=== PATIENT | female | born 1980 | race Hispanic/Latino ===

== ENCOUNTER 2020-06-19 09:50 | Emergency (ER) | payer SELFPAY ==
[2020-06-19 11:12] LABS: Urine Blood 2+ (NEG); Urine Glucose NEGATIVE (NEG); Urine Protein NEGATIVE (NEG); Urine Specific Gravity 1.015 (1.005-1.030)
[2020-06-19 11:13] LABS: Absolute Lymphocytes (CBC) 1.2 K/uL (0.7-4.9); Hematocrit 39.8 % (36.0-45.0); Lymphocytes % 13.2 % (15.3-44.8); MPV 8.2 fL (7.6-11.3); RBC Red Blood Cell Count 4.61 M/uL (3.86-4.86)
[2020-06-19 11:57] LABS: BUN Blood Urea Nitrogen 7 mg/dL (7-18); Bicarbonate 25 mmol/L (21-32); Glucose Level 115 mg/dL (74-106); HCG, Quantitative 4459 mIU/mL (1-3); Potassium 3.3 mmol/L (3.5-5.1); Sodium Level 142 mmol/L (136-145)
--- NOTE | 2020-06-19 12:01 | RAD REPORT ---
EXAM DESCRIPTION: US - Transvaginal OB - 06/19/2020 11:50 am CLINICAL HISTORY: Vaginal bleeding;Abd pain COMPARISON: No comparisons FINDINGS: A normal shaped gestational sac is seen in the fundal portion of the endometrial cavity. A verage gestational sac measurements correspond to a 6 week 2 day age. No pole identified. There may be a very small yolk sac. No hemorrhage, mass or other intrauterine abnormality seen. A small cyst identified in the left ovary containing a small amount of echogenic debris. Both ovaries are normal in size. No evidence for ectopic . No blood or fluid in the cul de sac. IMPRESSION: A 6 week 2 day sized gestational sac is seen in the fundus of the uterus. No pole identified. No adnexal mass or suspicion for ectopic . Follow-up ultrasound could be performed if serial beta HCG values indicate ongoing .
[2020-06-19 12:04] LABS: Blood Morphology Comment NOT SEEN (NOT SEEN); Platelet Estimate ADEQ
--- NOTE | 2020-06-19 12:05 | EDPHYS ---
Physician Documentation [facility] Name: Mariama Harris Age: 40 yrs Sex: Female : 1980 Arrival Date: 06/19/2020 Time: 09:52 Bed 13 Private MD: ED Physician Nato Manley HPI: 06/19 10:42 This 40 yrs old Female presents to ER via Ambulatory with complaints of jr8 Vaginal Bleeding, + Preg <12wks, Pelvic Pain. 10:42 The patient presents to the emergency department with vaginal bleeding, that is light. jr8 The estimated gestational age is 6 weeks. course: care: none, Leakage of Fluid: none appreciated, Ultrasound: the patient has not had an ultrasound. Previous pregnancies: the patient has never been . Associated signs and symptoms: Pertinent positives: abdominal pain. The patient has not experienced similar symptoms in the past. The patient has not recently seen a physician. 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 - Social history:: Smoking status: Patient/guardian denies using tobacco, Stopped _ months ago 7. ROS: 10:42 Eyes: Negative for injury, pain, redness, and discharge, ENT: Negative for injury, jr8 pain, and discharge, Neck: Negative for injury, pain, and swelling, Cardiovascular: Negative for chest pain, palpitations, and edema, Respiratory: Negative for shortness of breath, cough, wheezing, and pleuritic chest pain, Back: Negative for injury and pain, MS/Extremity: Negative for injury and deformity, Skin: Negative for injury, rash, and discoloration, Neuro: Negative for headache, weakness, numbness, tingling, and seizure. 10:42 Abdomen/GI: Positive for abdominal cramps, Negative for nausea, vomiting, and diarrhea. 10:42 : Positive for vaginal bleeding, Negative for urinary symptoms, pelvic pain, flank pain, vaginal discharge, vaginal itching. Exam: 10:42 Constitutional: This is a well developed, well nourished patient who is awake, alert, jr8 and in no acute distress. Cardiovascular: Regular rate and rhythm with a normal S1 and S2. No gallops, murmurs, or rubs. Normal PMI, no JVD. No pulse deficits. Respiratory: Lungs have equal breath sounds bilaterally, clear to auscultation and percussion. No rales, rhonchi or wheezes noted. No increased work of breathing, no retractions or nasal flaring. Abdomen/GI: Soft, non-tender, with normal bowel sounds. No distension or tympany. No guarding or rebound. No evidence of tenderness throughout. Back: No spinal tenderness. No costovertebral tenderness. Full range of motion. Skin: Warm, dry with normal turgor. Normal color with no rashes, no lesions, and no evidence of cellulitis. MS/ Extremity: Pulses equal, no cyanosis. Neurovascular intact. Full, normal range of motion. Neuro: Awake and alert, GCS 15, oriented to person, place, time, and situation. Cranial nerves II-XII grossly intact. Motor strength 5/5 in all extremities. Sensory grossly intact. Cerebellar exam normal. Normal gait. Vital Signs: 10:35 BP 110 / 64; Pulse 76; Resp 16 S; Temp 97.7(TE); Pulse Ox 100% on R/A; Weight 59.87 kg ca1 (R); Height 5 ft. 2 in. (157.48 cm) (R); Pain 4/10; 11:50 BP 106 / 72; Pulse 81; Resp 16 S; Pulse Ox 100% on R/A; ca1 10:35 Body Mass Index 24.14 (59.87 kg, 157.48 cm) ca1 MDM: 10:29 Patient medically screened. jr8 12:04 Data reviewed: vital signs, nurses notes, lab test result(s), radiologic studies, jr8 ultrasound. Data interpreted: Pulse oximetry: on room air is 100 %. Interpretation: normal. Counseling: I had a detailed discussion with the patient and/or guardian regarding: the historical points, exam findings, and any diagnostic results supporting the discharge/admit diagnosis, lab results, radiology results, the need for outpatient follow up, an OB/Gyne specialist, to return to the emergency department if symptoms worsen or persist or if there are any questions or concerns that arise at home. 06/19 10:41 Order name: Quantitative Hcg; Complete Time: 11:59 06/19 10:41 Order name: Abo/rh Typing; Complete Time: 11:41 06/19 10:41 Order name: Basic Metabolic Panel; Complete Time: 11:59 06/19 10:41 Order name: CBC with Diff; Complete Time: 12:05 06/19 10:58 Order name: Urine Dipstick--Ancillary (enter results); Complete Time: 11:20 bd 06/19 10:58 Order name: Urine --Ancillary (enter results); Complete Time: 11:20 bd 06/19 10:41 Order name: Urine Test (obtain specimen); Complete Time: 10:57 06/19 10:41 Order name: IV Saline Lock; Complete Time: 10:57 06/19 10:41 Order name: Labs collected and sent; Complete Time: 10:06/19 10:41 Order name: NPO; Complete Time: 10:06/19 10:41 Order name: Urine Dipstick-Ancillary (obtain specimen); Complete Time: 10:06/19 11:08 Order name: US Transvaginal Ob; Complete Time: 12:03 06/19 11:22 Order name: Manual Differential; Complete Time: 12:05 EDMS Administered Medications: 12:20 Drug: Potassium Chloride 40 mEq Route: PO; ca1 12:21 Follow up: Response: Medication administered at discharge. ca1 Disposition: 12:37 Co-signature as Attending Physician, Nato Manley MD. rn Disposition: 06/19/20 12:04 Discharged to Home. Impression: Threatened . - Condition is Stable. - Discharge Instructions: Threatened Miscarriage, Vaginal Bleeding During , First Trimester, Pelvic Rest. - Medication Reconciliation Form, Thank You Letter, Antibiotic Education, Prescription Opioid Use form. - Follow up: Private Physician; When: 1 week; Reason: Recheck today's complaints, Continuance of care, Re-evaluation by your physician. - Problem is new. - Symptoms have improved. Signatures: Dispatcher [employer] EDMS Nato Manley MD MD rn Roszak, Josh, PA PA jrElvia Molina RN RN ca1 Corrections: (The following items were deleted from the chart) 10:54 10:42 Constitutional: Negative for fever, chills, and weight loss, Cardiovascular: jr8 Negative for chest pain, palpitations, and edema, Respiratory: Negative for shortness of breath, cough, wheezing, and pleuritic chest pain, Abdomen/GI: Negative for abdominal pain, nausea, vomiting, diarrhea, and constipation, Back: Negative for injury and pain, MS/Extremity: Negative for injury and deformity, Skin: Negative for injury, rash, and discoloration, Neuro: Negative for headache, weakness, numbness, tingling, and seizure, jr8 12:21 12:04 06/19/2020 12:04 Discharged to Home. Impression: Threatened . Condition ca1 is Stable. Forms are Medication Reconciliation Form, Thank You Letter, Antibiotic Education, Prescription Opioid Use. Follow up: Private Physician; When: 1 week; Reason: Recheck today's complaints, Continuance of care, Re-evaluation by your physician. Problem is new. Symptoms have improved. jr8
--- NOTE | 2020-06-19 12:05 | ER ---
Nurse's Notes [facility] Name: Mariama Harris Age: 40 yrs Sex: Female : 1980 Arrival Date: 06/19/2020 Time: 09:52 Bed 13 Private MD: Diagnosis: Threatened Presentation: 06/19 10:35 Chief complaint: Patient states: 6 weeks , crampy since last night. Spotting ca1 since Wednesday, but has increased to vaginal bleeding, moderate in amount. Coronavirus screen: Client denies travel out of the [place] in the last 14 days. At this time, the client does not indicate any symptoms associated with coronavirus-19. Ebola Screen: Patient negative for fever greater than or equal to 101.5 degrees Fahrenheit, and additional compatible Ebola Virus Disease symptoms Patient denies exposure to infectious person. Patient denies travel to an Ebola-affected area in the 21 days before illness onset. No symptoms or risks identified at this time. Initial Sepsis Screen: Does the patient meet any 2 criteria? No. Patient's initial sepsis screen is negative. Does the patient have a suspected source of infection? No. Patient's initial sepsis screen is negative. Risk Assessment: Do you want to hurt yourself or someone else? Patient reports no desire to harm self or others. Onset of symptoms was June 19, 2020. 10:35 Method Of Arrival: Ambulatory ca1 10:35 Acuity: JEFFRY 3 ca1 Triage Assessment: 10:39 General: Appears in no apparent distress. comfortable, Behavior is calm, cooperative, ca1 appropriate for age. Pain: Complains of pain in suprapubic area, right lower quadrant and left lower quadrant Pain does not radiate. Pain currently is 4 out of 10 on a pain scale. Quality of pain is described as crampy, Pain began 1 day ago. Is intermittent. EENT: No deficits noted. No signs and/or symptoms were reported regarding the EENT system. Neuro: Level of Consciousness is awake, alert, obeys commands, Oriented to person, place, time, situation, Appropriate for age. Cardiovascular: Heart tones S1 S2 present Capillary refill < 3 seconds Patient's skin is warm and dry. Respiratory: Airway is patent Respiratory effort is even, unlabored, Respiratory pattern is regular, symmetrical, Breath sounds are clear bilaterally. GI: Abdomen is flat, non-distended, Bowel sounds present X 4 quads. Abd is soft and non tender X 4 quads. : Reports cramping, lower quadrant(s) vaginal bleeding that is bright red. Derm: Skin is intact, is healthy with good turgor, Skin is pink, warm \T\ dry. 10:39 Musculoskeletal: Circulation, motion, and sensation intact. Capillary refill < 3 ca1 seconds. 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 - Social history:: Smoking status: Patient/guardian denies using tobacco, Stopped _ months ago 7. Screenin:40 Abuse screen: Denies threats or abuse. Denies injuries from another. Nutritional ca1 screening: No deficits noted. Tuberculosis screening: No symptoms or risk factors identified. Fall Risk IV access (20 points). Assessment: 10:40 Reassessment: See triage notes. ca1 11:50 Reassessment: Patient appears in no apparent distress at this time. Patient and/or ca1 family updated on plan of care and expected duration. Pain level reassessed. Patient is alert, oriented x 3, equal unlabored respirations, skin warm/dry/pink. Vital Signs: 10:35 BP 110 / 64; Pulse 76; Resp 16 S; Temp 97.7(TE); Pulse Ox 100% on R/A; Weight 59.87 kg ca1 (R); Height 5 ft. 2 in. (157.48 cm) (R); Pain 4/10; 11:50 BP 106 / 72; Pulse 81; Resp 16 S; Pulse Ox 100% on R/A; ca1 10:35 Body Mass Index 24.14 (59.87 kg, 157.48 cm) ca1 ED Course: 09:52 Patient arrived in ED. as 09:58 Chucky Sparks PA is PHCP. jr8 09:58 Nato Manley MD is Attending Physician. jr8 10:25 Elvia Stock, RN is Primary Nurse. ca1 10:38 Triage completed. ca1 10:39 Arm band placed on right wrist. ca1 10:40 Patient has correct armband on for positive identification. Placed in gown. Bed in low ca1 position. Call light in reach. Side rails up X 1. Pulse ox on. NIBP on. Warm blanket given. 10:40 No provider procedures requiring assistance completed. Initial lab(s) drawn, by nc, ca1 sent to lab. Inserted saline lock: 20 gauge in right antecubital area, using aseptic technique. Blood collected. 11:49 US Transvaginal Ob In Process Unspecified. EDMS 12:21 IV discontinued, intact, bleeding controlled, No redness/swelling at site. Pressure ca1 dressing applied. Administered Medications: 12:20 Drug: Potassium Chloride 40 mEq Route: PO; ca1 12:21 Follow up: Response: Medication administered at discharge. ca1 Outcome: 12:04 Discharge ordered by . crystal 12:21 Discharged to home ambulatory. ca1 12:21 Condition: stable 12:21 Discharge instructions given to patient, Instructed on discharge instructions, follow up and referral plans. Demonstrated understanding of instructions, follow-up care. 12:21 Patient left the ED. ca1 Signatures: Dispatcher [employer] EDMS Hetal Harvey Josh, PA PA jr8 Elvia Stock, RN RN ca1 Corrections: (The following items were deleted from the chart) 10:40 10:39 Derm: Skin is intact, is healthy with good turgor, Skin is pink, warm \T\ dry. ca1 ca1
[2020-06-19] MEDS ORDERED: POTASSIUM CL SA 10 MEQ TAB PO ONE (12:24)
[2020-06-24 09:35] VITALS: TEMP 97.7; O2SAT 100
[2020-06-24 09:36] VITALS: BP 106/72
== END 2020-06-19 12:21 | disposition home or self-care (01) ==
LOC: ER 09:50
DX: O20.0 Threatened abortion (principal); Z3A.01 Less than 8 weeks gestation of pregnancy
CPT/HCPCS: 36415; 76817; 80048; 81003; 81025; 84702; 85025; 86900; 86901; 99284

== ENCOUNTER 2020-06-26 10:57 | Emergency (ER) | payer SELFPAY ==
[2020-06-26 12:37] LABS: Absolute Lymphocytes (CBC) 1.3 K/uL (0.7-4.9); Basophils % 0.4 % (0-1.3); Hematocrit 38.6 % (36.0-45.0); Lymphocytes % 16.5 % (15.3-44.8); MPV 8.1 fL (7.6-11.3); RBC Red Blood Cell Count 4.48 M/uL (3.86-4.86)
--- NOTE | 2020-06-26 12:57 | EDPHYS ---
Physician Documentation [facility] Name: Mariama Harris Age: 40 yrs Sex: Female : 1980 Arrival Date: 06/26/2020 Time: 10:59 Bed 20 Private MD: ED Physician Ronni Santana HPI: 06/26 11:34 This 40 yrs old Female presents to ER via Ambulatory with complaints of jr8 Vaginal Bleeding - W/ Pain. 11:34 Onset: The symptoms/episode began/occurred gradually, 1 week(s) ago. Modifying factors: jr8 The symptoms are alleviated by nothing, the symptoms are aggravated by nothing. Associated signs and symptoms: Pertinent positives: pelvic pain. Severity of symptoms: At their worst the symptoms were moderate, in the emergency department the symptoms are unchanged. The patient has not experienced similar symptoms in the past. The patient has been recently seen by a physician:. Patient seen last week for vaginal spotting. Approximately 6 weeks gestation at that time. Worked up and found to have threatened . Followed up with OB and has scheduled appointment tomorrow for another US. Came to ED today because she is now passing large clots and having pelvic pain . Historical: - Allergies: 11:07 PENICILLINS; ll1 - PSHx: 11:07 None; ll1 - Immunization history:: Flu vaccine is up to date. - Social history:: Smoking status: Patient/guardian denies using tobacco, Stopped _ months ago 7 Patient uses alcohol, only on a social basis. Patient/guardian denies using street drugs. ROS: 11:34 Eyes: Negative for injury, pain, redness, and discharge, ENT: Negative for injury, jr8 pain, and discharge, Neck: Negative for injury, pain, and swelling, Cardiovascular: Negative for chest pain, palpitations, and edema, Respiratory: Negative for shortness of breath, cough, wheezing, and pleuritic chest pain, Abdomen/GI: Negative for abdominal pain, nausea, vomiting, diarrhea, and constipation, Back: Negative for injury and pain, MS/Extremity: Negative for injury and deformity, Skin: Negative for injury, rash, and discoloration, Neuro: Negative for headache, weakness, numbness, tingling, and seizure. 11:34 : Positive for pelvic pain, vaginal bleeding. Exam: 11:34 Constitutional: This is a well developed, well nourished patient who is awake, alert, jr8 and in no acute distress. Cardiovascular: Regular rate and rhythm with a normal S1 and S2. No gallops, murmurs, or rubs. Normal PMI, no JVD. No pulse deficits. Respiratory: Lungs have equal breath sounds bilaterally, clear to auscultation and percussion. No rales, rhonchi or wheezes noted. No increased work of breathing, no retractions or nasal flaring. Abdomen/GI: Soft, non-tender, with normal bowel sounds. No distension or tympany. No guarding or rebound. No evidence of tenderness throughout. Skin: Warm, dry with normal turgor. Normal color with no rashes, no lesions, and no evidence of cellulitis. MS/ Extremity: Pulses equal, no cyanosis. Neurovascular intact. Full, normal range of motion. Neuro: Awake and alert, GCS 15, oriented to person, place, time, and situation. Cranial nerves II-XII grossly intact. Motor strength 5/5 in all extremities. Sensory grossly intact. Cerebellar exam normal. Normal gait. 12:54 : Pelvic Exam: External exam: is normal, Speculum exam: mild bleeding, no cervicitis, jr8 os that is open, tissue in cervix is seen. Vital Signs: 11:07 BP 116 / 60; Pulse 83; Resp 16; Temp 98.6; Pulse Ox 100% ; Weight 55.34 kg; Height 5 ll1 ft. 2 in. (157.48 cm); Pain 7/10; 13:33 BP 112 / 64; Pulse 81; Resp 18; Temp 97.8; Pulse Ox 99% on R/A; ph 11:07 Body Mass Index 22.31 (55.34 kg, 157.48 cm) ll1 MDM: 11:10 Patient medically screened. jr8 12:53 Data reviewed: vital signs, nurses notes, lab test result(s), and as a result, I will jr8 discharge patient. Data interpreted: Pulse oximetry: on room air is 100 %. Interpretation: normal. Counseling: I had a detailed discussion with the patient and/or guardian regarding: the historical points, exam findings, and any diagnostic results supporting the discharge/admit diagnosis, lab results, the need for outpatient follow up, an OB/Gyne specialist, to return to the emergency department if symptoms worsen or persist or if there are any questions or concerns that arise at home. 12:54 ED course: Explained to patient that there is no gross hemorrhage present. Moderate jr8 normal flow bleeding for miscarriage noted. Explained to her that this would be normal and will continue for next 24-48 hours and then should decrease. If worse to come back for further evaluation. Otherwise to keep OB appointment for tomorrow . 06/26 11:23 Order name: CBC with Diff; Complete Time: 12:43 jr8 06/26 11:23 Order name: Basic Metabolic Panel; Complete Time: 13:32 jr8 06/26 11:23 Order name: IV; Complete Time: 12:35 jr8 06/26 11:23 Order name: HCG-Quantitative; Complete Time: 13:32 jr8 06/26 11:24 Order name: Pelvic Exam Setup; Complete Time: 12:39 jr8 Administered Medications: No medications were administered Disposition: 17:00 Co-signature as Attending Physician, Ronni Santana MD I agree with the assessment and kdr plan of care. Disposition: 06/26/20 12:56 Discharged to Home. Impression: Spontaneous . - Condition is Stable. - Discharge Instructions: Miscarriage. - Medication Reconciliation Form, Thank You Letter, Antibiotic Education, Prescription Opioid Use form. - Follow up: Private Physician; When: Tomorrow; Reason: Recheck today's complaints, Continuance of care, Re-evaluation by your physician. - Problem is new. - Symptoms have improved. Signatures: Dispatcher [employer] EDMS Ronni Santana MD MD [facility] Chucky Sparks PA PA jr8 Manasa Ruffin RN RN ph Bryanna Hoover RN RN ll1 Corrections: (The following items were deleted from the chart) 13:37 12:56 06/26/2020 12:56 Discharged to Home. Impression: Spontaneous . Condition ph is Stable. Forms are Medication Reconciliation Form, Thank You Letter, Antibiotic Education, Prescription Opioid Use. Follow up: Private Physician; When: Tomorrow; Reason: Recheck today's complaints, Continuance of care, Re-evaluation by your physician. Problem is new. Symptoms have improved. jr8
--- NOTE | 2020-06-26 12:57 | ER ---
Nurse's Notes [facility] Name: Mariama Harris Age: 40 yrs Sex: Female : 1980 Arrival Date: 06/26/2020 Time: 10:59 Bed 20 Private MD: Diagnosis: Spontaneous Presentation: 06/26 11:07 Coronavirus screen: Client denies travel out of the [place] in the last 14 days. At this ll1 time, the client does not indicate any symptoms associated with coronavirus-19. Ebola Screen: Patient denies travel to an Ebola-affected area in the 21 days before illness onset. Initial Sepsis Screen: Does the patient meet any 2 criteria? No. Patient's initial sepsis screen is negative. Risk Assessment: Do you want to hurt yourself or someone else? Patient reports no desire to harm self or others. Onset of symptoms was June 16, 2020. 11:07 Method Of Arrival: Ambulatory ll1 11:07 Acuity: JEFFRY 3 ll1 11:10 Chief complaint: Patient states: G1, P0. Here last week for threatened . ll1 Vaginal bleeding and pain has increased since yesterday. Reports clots today. Saw her OB Wednesday, ultrasound scheduled for . Came in since bleeding got worse. Initial Sepsis Screen:. Triage Assessment: 11:11 General: Appears uncomfortable, Behavior is calm, cooperative, appropriate for age. ll1 Pain: Complains of pain in pelvis Pain currently is 7 out of 10 on a pain scale. Quality of pain is described as crampy, Pain began 10 days Is intermittent. Neuro: No deficits noted. Cardiovascular: No deficits noted. Respiratory: No deficits noted. GI: Abdomen is flat, Reports cramping. : Reports cramping, pain pelvic cramping vaginal bleeding that is with clots, moderate flow. Historical: - Allergies: 11:07 PENICILLINS; ll1 - PSHx: 11:07 None; ll1 - Immunization history:: Flu vaccine is up to date. - Social history:: Smoking status: Patient/guardian denies using tobacco, Stopped _ months ago 7 Patient uses alcohol, only on a social basis. Patient/guardian denies using street drugs. Screenin:33 Abuse screen: Denies threats or abuse. Denies injuries from another. Nutritional ph screening: No deficits noted. Tuberculosis screening: No symptoms or risk factors identified. Fall Risk None identified. Assessment: 11:45 General: Appears in no apparent distress. comfortable, well groomed, Behavior is calm, ph cooperative, appropriate for age, Denies fever, feeling ill. Pain: Complains of pain in suprapubic area. Neuro: Level of Consciousness is awake, alert, obeys commands, Oriented to person, place, time, situation. Cardiovascular: Capillary refill < 3 seconds in bilateral fingers Patient's skin is warm and dry. Respiratory: Airway is patent Respiratory effort is even, unlabored. : Reports cramping, vaginal bleeding that is with clots, moderate flow. Derm: Skin is intact, Skin is pink, warm \T\ dry. Musculoskeletal: Circulation, motion, and sensation intact. Range of motion: intact in all extremities. 13:33 Reassessment: Patient appears in no apparent distress at this time. Patient and/or ph family updated on plan of care and expected duration. Pain level reassessed. Patient is alert, oriented x 3, equal unlabored respirations, skin warm/dry/pink. Vital Signs: 11:07 BP 116 / 60; Pulse 83; Resp 16; Temp 98.6; Pulse Ox 100% ; Weight 55.34 kg; Height 5 ll1 ft. 2 in. (157.48 cm); Pain 7/10; 13:33 BP 112 / 64; Pulse 81; Resp 18; Temp 97.8; Pulse Ox 99% on R/A; ph 11:07 Body Mass Index 22.31 (55.34 kg, 157.48 cm) ll1 ED Course: 10:59 Patient arrived in ED. ds1 11:06 Chucky Sparks PA is PHCP. jr8 11:06 Ronni Santana MD is Attending Physician. jr8 11:08 Manasa Ruffin, SHERIE is Primary Nurse. ph 11:08 Triage completed. ll1 11:08 Arm band placed on Patient placed in an exam room, on a stretcher. ll1 13:33 Patient has correct armband on for positive identification. Placed in gown. Bed in low ph position. Call light in reach. Side rails up X 1. 13:33 No provider procedures requiring assistance completed. IV discontinued, intact, ph bleeding controlled, No redness/swelling at site. Pressure dressing applied. Administered Medications: No medications were administered Outcome: 12:56 Discharge ordered by MD. rojas 13:33 Discharged to home ambulatory. ph 13:33 Condition: good 13:33 Discharge instructions given to patient, Instructed on discharge instructions, follow up and referral plans. Demonstrated understanding of instructions, follow-up care. 13:37 Patient left the ED. ph Signatures: Mora Nava ds1 Chucky Sparks PA PA jr8 Manasa Ruffin RN RN ph Bryanna Hoover RN RN ll1
[2020-06-26 13:29] LABS: BUN Blood Urea Nitrogen 6 mg/dL (7-18); Bicarbonate 26 mmol/L (21-32); Glucose Level 103 mg/dL (74-106); HCG, Quantitative 1165 mIU/mL (1-3); Potassium 3.8 mmol/L (3.5-5.1); Sodium Level 142 mmol/L (136-145)
== END 2020-06-26 13:37 | disposition home or self-care (01) ==
LOC: ER 10:57
DX: O03.9 Complete or unspecified spontaneous abortion without complication (principal); Z88.0 Allergy status to penicillin
CPT/HCPCS: 36415; 80048; 84702; 85025; 99281

== ENCOUNTER 2021-05-16 21:36 | Inpatient (IN) | payer SELFPAY ==
[2021-05-16 23:01] LABS: Absolute Lymphocytes (CBC) 1.1 K/uL (0.7-4.9); Basophils % 0.2 % (0-1.3); Hematocrit 34.5 % (36.0-45.0); Lymphocytes % 5.9 % (15.3-44.8); MPV 8.3 fL (7.6-11.3); RBC Red Blood Cell Count 4.21 M/uL (3.86-4.86)
[2021-05-16 23:19] LABS: ALT/SGPT 19 U/L (12-78); AST/SGOT 10 U/L (15-37); Albumin 3.5 g/dL (3.4-5.0); Alkaline Phosphatase 46 U/L (45-117); BUN Blood Urea Nitrogen 9 mg/dL (7-18); Bicarbonate 25 mmol/L (21-32); Bilirubin Direct 0.2 mg/dL (0-0.2); Glucose Level 117 mg/dL (74-106); Lipase 96 U/L (73-393); Potassium 3.3 mmol/L (3.5-5.1); Protein, Total 7.6 g/dL (6.4-8.2); Sodium Level 138 mmol/L (136-145)
[2021-05-17] MEDS ORDERED: ONDANSETRON 4 MG/2 ML VIAL ONE ×2 (01:36→12:46)
[2021-05-17] MEDS ORDERED: MORPHINE 4 MG/ML SYR ONE (01:36)
[2021-05-17] MEDS ORDERED: NA CHLORIDE 0.9% 1,000 ML ONE (01:36)
[2021-05-17 01:56] LABS: Urine Blood Trace-intact (Negative); Urine Glucose Negative (Negative); Urine Protein Trace (Negative)
--- NOTE | 2021-05-17 03:52 | EDPHYS ---
Physician Documentation [facility] Name: Mariama Harris Age: 41 yrs Sex: Female : 1980 Arrival Date: 05/16/2021 Time: 21:38 Bed 5 Private MD: ED Physician Yan Shipley HPI: 05/17 00:55 This 41 yrs old Female presents to ER via Ambulatory with complaints of mh7 Abdominal Pain. 00:55 The patient presents with abdominal pain in the lower abdomen. Onset: The mh7 symptoms/episode began/occurred 2 day(s) ago. The symptoms do not radiate. Associated signs and symptoms: Pertinent positives: dysuria, nausea, Pertinent negatives: anorexia, blood in stools, chest pain, constipation, diarrhea, fever, headache, hematuria, palpitations, shortness of breath, vaginal discharge, vomiting, vomiting blood. The symptoms are described as intermittent, vague, waxing/waning. Modifying factors: The symptoms are alleviated by nothing, the symptoms are aggravated by movement, touching the area. Severity of pain: At its worst the pain was moderate 2 day(s) ago, in the emergency department the pain is unchanged. 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 - Social history:: Smoking status: Patient/guardian denies using tobacco, the patient reports quitting approximately 2 years ago. ROS: 05/17 00:55 Constitutional: Negative for fever, chills, and weight loss, Eyes: Negative for injury, mh7 pain, redness, and discharge, ENT: Negative for injury, pain, and discharge, Neck: Negative for injury, pain, and swelling, Cardiovascular: Negative for chest pain, palpitations, and edema, Respiratory: Negative for shortness of breath, cough, wheezing, and pleuritic chest pain, Back: Negative for injury and pain, MS/Extremity: Negative for injury and deformity, Skin: Negative for injury, rash, and discoloration, Neuro: Negative for headache, weakness, numbness, tingling, and seizure, Psych: Negative for depression, anxiety, suicide ideation, homicidal ideation, and hallucinations, Allergy/Immunology: Negative for hives, rash, and allergies, Endocrine: Negative for neck swelling, polydipsia, polyuria, polyphagia, and marked weight changes, Hematologic/Lymphatic: Negative for swollen nodes, abnormal bleeding, and unusual bruising. Exam: 00:55 Constitutional: This is a well developed, well nourished patient who is awake, alert, mh7 and in no acute distress. Head/Face: Normocephalic, atraumatic. Eyes: Pupils equal round and reactive to light, extra-ocular motions intact. Lids and lashes normal. Conjunctiva and sclera are non-icteric and not injected. Cornea within normal limits. Periorbital areas with no swelling, redness, or edema. Neck: Trachea midline, no thyromegaly or masses palpated, and no cervical lymphadenopathy. Supple, full range of motion without nuchal rigidity, or vertebral point tenderness. No Meningismus. Chest/axilla: Normal chest wall appearance and motion. Nontender with no deformity. No lesions are appreciated. Cardiovascular: Regular rate and rhythm with a normal S1 and S2. No gallops, murmurs, or rubs. Normal PMI, no JVD. No pulse deficits. Respiratory: Lungs have equal breath sounds bilaterally, clear to auscultation and percussion. No rales, rhonchi or wheezes noted. No increased work of breathing, no retractions or nasal flaring. 00:55 Back: No spinal tenderness. No costovertebral tenderness. Full range of motion. Skin: Warm, dry with normal turgor. Normal color with no rashes, no lesions, and no evidence of cellulitis. MS/ Extremity: Pulses equal, no cyanosis. Neurovascular intact. Full, normal range of motion. Neuro: Awake and alert, GCS 15, oriented to person, place, time, and situation. Cranial nerves II-XII grossly intact. Motor strength 5/5 in all extremities. Sensory grossly intact. Cerebellar exam normal. Normal gait. Psych: Awake, alert, with orientation to person, place and time. Behavior, mood, and affect are within normal limits. 00:55 Abdomen/GI: Inspection: abdomen appears normal, Bowel sounds: normal, in all quadrants, Palpation: moderate abdominal tenderness, in the suprapubic area, right lower quadrant and left lower quadrant, mass, is not appreciated, rebound tenderness, is not appreciated, voluntary guarding, is not appreciated, involuntary guarding, is not appreciated, no appreciated organomegaly, Rectal exam: the exam is deferred, because of patient request, Indicators: McBurney's point is not tender, Olivarez's sign is negative, Rovsing's sign is negative, Obturator sign is negative, Psoas sign is negative, Liver: no appreciated palpable abnormalities, Hernia: not appreciated. Vital Signs: 05/16 22:35 BP 94 / 58; Pulse 90; Resp 16; Temp 98.6(TE); Pulse Ox 99% on R/A; Weight 52.16 kg (M); kg Height 5 ft. 5 in. (165.10 cm) (R); Pain 8/10; 05/17 01:00 BP 101 / 55; Pulse 83; Resp 16; Pulse Ox 99% on R/A; em 04:00 BP 97 / 58; Pulse 88; Resp 18; Pulse Ox 99% on R/A; em 05/16 22:35 Body Mass Index 19.14 (52.16 kg, 165.10 cm) kg MDM: 03:50 Differential diagnosis: appendicitis, bowel obstruction, diverticulitis, Ectopic mh7 , Endometriosis, gastroesophageal reflux disease, non-specific abd pain, urinary tract infection. Data reviewed: vital signs, nurses notes, lab test result(s), CBC, electrolytes, urinalysis, radiologic studies, CT scan. Counseling: I had a detailed discussion with the patient and/or guardian regarding: the historical points, exam findings, and any diagnostic results supporting the discharge/admit diagnosis, lab results, radiology results, the need for further work-up and treatment in the hospital. Response to treatment: the patient's symptoms have mildly improved after treatment. 03:52 Patient medically screened. mh7 05/16 22:42 Order name: Basic Metabolic Panel; Complete Time: 01: kg 05/16 22:42 Order name: CBC with Diff; Complete Time: 01:05/16 22:42 Order name: Hepatic Function; Complete Time: 01:05/16 22:42 Order name: Lipase; Complete Time: :05/17 01:55 Order name: Urine Dipstick-Ancillary; Complete Time: 02:07 [facility] 05/17 01:56 Order name: Urine --Ancillary (enter results) tt3 05/17 01:08 Order name: CT Abd/Pelvis - IV Contrast Only 7 05/17 01:57 Order name: Urine --Ancillary; Complete Time: 02:07 [facility] 05/17 05:05 Order name: COVID-19 : Document "Date of Symptom Onset" if Symptomatic. em 05/17 05:27 Order name: CORONAVIRUS [facility] 05/17 06:37 Order name: SARS-COV-2 RT PCR [facility] 05/16 22:42 Order name: IV Saline Lock; Complete Time: 00:55 kg 05/16 22:42 Order name: Labs collected and sent; Complete Time: 00:03 kg 05/17 01:09 Order name: Urine Dipstick-Ancillary (obtain specimen); Complete [facility]: 01:55 [facility] 05/17 01:09 Order name: Urine Test (obtain specimen); Complete Time: 01:55 [facility] 05/17 04:01 Order name: NPO EDMD Administered Medications: 01:17 Drug: NS 0.9% 1000 ml Route: IV; Rate: 1000 ml; Site: right antecubital; em 03:55 Follow up: IV Status: Completed infusion; IV Intake: 1000ml em 04:05 Drug: Rocephin (cefTRIAXone) 1 grams Route: IV; Rate: per protocol; Site: right em antecubital; 04:24 Follow up: Response: No adverse reaction; IV Status: Completed infusion; IV Intake: 10mlem 04:07 Drug: Flagyl (metroNIDAZOLE) 500 mg Volume: 100 ml; Route: IVPB; Rate: 200 ml/hr; em Infused Over: 30 mins; Site: left forearm; 04:45 Follow up: Response: No adverse reaction; IV Status: Completed infusion; IV Intake: em 100ml 07:25 Not Given (Patient Refused): morphine 2 mg IVP once; (PAIN>8) RASS on ADMN: Combtv4, jl7 Very Agttd3, Agttd2, Rstlss1, AlertClm0, Drwsy-1, LtSdtn-2, ModSdtn-3, DpSdtn-4, UnArsble-5 x2 07:25 Not Given (Patient Refused): Zofran (Ondansetron) 4 mg IVP once; over 2 minutes jl7 Disposition Summary: 05/17/21 03:52 Hospitalization Ordered Hospitalization Status: [facility] Condition: Stable [facility] Problem: new [facility] Symptoms: have improved [facility] Bed/Room Type: Standard [facility] Location: [facility] ER HOLD(05/17/21 05:02) Room Assignment: ERHOLD-(05/17/21 05:02) Diagnosis - Unspecified acute appendicitis [facility] Forms: - Medication Reconciliation Form [facility] - SBAR form [facility] Signatures: Dispatcher [employer] Lance Naylor RN RN em Nichole Brown RN RN Yan Shipley MD MD [facility] Haleigh Padilla RN RN Tonya Hinkle RN jl7 Corrections: (The following items were deleted from the chart) 05:02 03:52 Telemetry/MedSurg (Inpatient) [facility] 05:02 03:52 [facility]
--- NOTE | 2021-05-17 03:52 | ER ---
Nurse's Notes [facility] Name: Mariama Harris Age: 41 yrs Sex: Female : 1980 Arrival Date: 05/16/2021 Time: 21:38 Bed 5 Private MD: Diagnosis: Unspecified acute appendicitis Presentation: 05/16 22:35 Chief complaint: Patient states: Lower abdominal pain x 2 days and heart burn. kg Coronavirus screen: Client denies travel out of the [place] in the last 14 days. At this time, unable to obtain information related to travel outside the [place] At this time, the client does not indicate any symptoms associated with coronavirus-19. Ebola Screen: Patient negative for fever greater than or equal to 101.5 degrees Fahrenheit, and additional compatible Ebola Virus Disease symptoms Patient denies exposure to infectious person. Patient denies travel to an Ebola-affected area in the 21 days before illness onset. Initial Sepsis Screen: Does the patient meet any 2 criteria? No. Patient's initial sepsis screen is negative. Does the patient have a suspected source of infection? No. Patient's initial sepsis screen is negative. Risk Assessment: Do you want to hurt yourself or someone else? Patient reports no desire to harm self or others. Onset of symptoms was May 14, 2021. 22:35 Method Of Arrival: Ambulatory kg 22:35 Acuity: JEFFRY 3 kg Triage Assessment: 22:39 General: Appears in no apparent distress. Behavior is calm, cooperative, appropriate kg for age, quiet. Pain: Complains of pain in suprapubic area, right lower quadrant and left lower quadrant Pain currently is 8 out of 10 on a pain scale. at worst was 8 out of 10 on a pain scale. level that patient reports is acceptable is 5 out of 10 on a pain scale. 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 - Social history:: Smoking status: Patient/guardian denies using tobacco, the patient reports quitting approximately 2 years ago. Screenin:38 Abuse screen: Denies threats or abuse. Denies injuries from another. Nutritional kg screening: No deficits noted. Tuberculosis screening: No symptoms or risk factors identified. Fall Risk None identified. No fall in past 12 months (0 pts). No secondary diagnosis (0 pts). IV access (20 points). Ambulatory Aid- None/Bed Rest/Nurse Assist (0 pts). Gait- Mental Status- Oriented to own ability (0 pts). Total Harding Fall Scale indicates No Risk (0-24 pts). Assessment: 05/17 01:10 General: Appears in no apparent distress. uncomfortable, Behavior is calm, cooperative, em appropriate for age, Denies fever. Pain: Complains of pain in left lower quadrant and right lower quadrant and suprapubic area Pain currently is 8 out of 10 on a pain scale. Pain began 2-3 days ago. Neuro: Level of Consciousness is awake, alert, obeys commands, Oriented to person, place, time, situation, Appropriate for age. Cardiovascular: Capillary refill < 3 seconds Patient's skin is warm and dry. Respiratory: Airway is patent Respiratory effort is even, unlabored, Respiratory pattern is regular, symmetrical. GI: Abd is soft X 4 quads Abdomen is tender to palpation in suprapubic area, right lower quadrant and left lower quadrant. GI: Patient currently denies nausea, vomiting. : Reports burning with urination. Derm: Skin is intact, is healthy with good turgor, Skin is pink, warm \T\ dry. Musculoskeletal: Capillary refill < 3 seconds, Range of motion: intact in all extremities. 01:29 Reassessment: pt would like to hold off on pain medication, provider notified. em 02:59 Reassessment: Patient appears in no apparent distress at this time. Patient and/or em family updated on plan of care and expected duration. Pain level reassessed. Patient is alert, oriented x 3, equal unlabored respirations, skin warm/dry/pink. 04:39 Reassessment: Patient appears in no apparent distress at this time. Patient and/or em family updated on plan of care and expected duration. Pain level reassessed. Patient is alert, oriented x 3, equal unlabored respirations, skin warm/dry/pink. Vital Signs: 05/16 22:35 BP 94 / 58; Pulse 90; Resp 16; Temp 98.6(TE); Pulse Ox 99% on R/A; Weight 52.16 kg (M); kg Height 5 ft. 5 in. (165.10 cm) (R); Pain 8/10; 05/17 01:00 BP 101 / 55; Pulse 83; Resp 16; Pulse Ox 99% on R/A; em 04:00 BP 97 / 58; Pulse 88; Resp 18; Pulse Ox 99% on R/A; em 05/16 22:35 Body Mass Index 19.14 (52.16 kg, 165.10 cm) kg ED Course: 05/16 21:38 Patient arrived in ED. ds1 22:38 Triage completed. kg 22:38 Patient has correct armband on for positive identification. kg 22:39 Arm band placed on right wrist. kg 05/17 00:01 Lance Portillo, RN is Primary Nurse. em 00:06 Yan Shipley MD is Attending Physician. mh7 02:38 CT Abd/Pelvis - IV Contrast Only In Process Unspecified. EDMS 03:51 Nathen Harvey MD is Hospitalizing Provider. mh7 05:08 No provider procedures requiring assistance completed. Patient admitted, IV remains in em place. Administered Medications: 01:17 Drug: NS 0.9% 1000 ml Route: IV; Rate: 1000 ml; Site: right antecubital; em 03:55 Follow up: IV Status: Completed infusion; IV Intake: 1000ml em 04:05 Drug: Rocephin (cefTRIAXone) 1 grams Route: IV; Rate: per protocol; Site: right em antecubital; 04:24 Follow up: Response: No adverse reaction; IV Status: Completed infusion; IV Intake: 10mlem 04:07 Drug: Flagyl (metroNIDAZOLE) 500 mg Volume: 100 ml; Route: IVPB; Rate: 200 ml/hr; em Infused Over: 30 mins; Site: left forearm; 04:45 Follow up: Response: No adverse reaction; IV Status: Completed infusion; IV Intake: em 100ml 07:25 Not Given (Patient Refused): morphine 2 mg IVP once; (PAIN>8) RASS on ADMN: Combtv4, jl7 Very Agttd3, Agttd2, Rstlss1, AlertClm0, Drwsy-1, LtSdtn-2, ModSdtn-3, DpSdtn-4, UnArsble-5 x2 07:25 Not Given (Patient Refused): Zofran (Ondansetron) 4 mg IVP once; over 2 minutes jl7 Intake: 03:55 IV: 1000ml; Total: 1000ml. em 04:24 IV: 10ml; Total: 1010ml. em 04:45 IV: 100ml; Total: 1110ml. em Outcome: 03:52 Decision to Hospitalize by Provider. [facility] 05:08 Admitted to ER Hold. Please see [facility] for further documentation. em 05:08 Condition: stable 05:08 Instructed on the need for admit, Demonstrated understanding of instructions. 11:12 Patient left the ED. eb Signatures: Dispatcher [employer] Lance Naylor, RN RN Mora Gonzalez ds1 Wendy Pat Maurice, MD MD 7 Haleigh Padilla RN RN kg Leal, Jahala RN jl7
[2021-05-17] MEDS ORDERED: ONDANSETRON 4 MG/2 ML VIAL IV PRN (03:55)
[2021-05-17] MEDS: D5 0.45 NS 1,000 ML IV SCH ×3 (04:00→23:57)
[2021-05-17] MEDS ORDERED: MORPHINE 4 MG/ML SYR IV PRN (04:00)
[2021-05-17] MEDS ORDERED: METRONIDAZOLE 500mg IVPB 500 MG/100 ML BAG IV ONE (04:25)
[2021-05-17] MEDS ORDERED: CEFTRIAXONE/SWI 1gm 1 GM/10 ML SYR ONE (04:25)
[2021-05-17 05:43] VITALS: BMI 19.1
[2021-05-17] MEDS ORDERED: METRONIDAZOLE 500mg IVPB 500 MG/100 ML BAG IV SCH (09:00)
[2021-05-17] MEDS: Levofloxacin500mg IV 500 MG/100 ML BAG IV SCH (10:00)
[2021-05-17] MEDS: METRONIDAZOLE 500mg IVPB 500 MG/100 ML BAG IV SCH ×3 (11:00→23:54)
[2021-05-17] MEDS ORDERED: Ringers Lactate 1,000 ML IV ONE (11:19)
[2021-05-17] MEDS ORDERED: propofoL 200 MG/20 ML VIAL IV ONE (11:47)
[2021-05-17] MEDS ORDERED: LIDOCAINE 2% MPF 5 ML VIAL ONE (11:48)
[2021-05-17] MEDS ORDERED: ROCURONIUM 50 MG/5 ML VIAL IV ONE (11:48)
[2021-05-17] MEDS ORDERED: FENTANYL CITR 100 MCG/2 ML ONE (11:48)
--- NOTE | 2021-05-17 12:09 | HP ---
Date of Admission: 05/17/2021 History Of Present Illness: This is a case of a 41-year-old patient, who comes to us with abdominal pain in the lower abdomen for the last 2 days associated with nausea, malaise, and she was expecting this to get better. This morning, she could not take it anymore so she came this morning to the ER, diagnosed with acute appendicitis, and a surgical evaluation was obtained. She denies any recent tra veling out of the country. Denies any family members sick at home. Denies any dysuria, hematuria, h ematochezia, melena. Past Medical History: None. Allergies: PENICILLIN. Surgeries: None. Last menstrual period 05/14/2021. Social Habits: No smoking or drinking alcohol. Family History: Noncontributory. Review of Systems: See above. Ten points otherwise unremarkable. Physical Examination: General: Patient is awake, alert. Eyes: Pupils equal and reactive, anicteric. Neck: Supple. Chest: Clear. Abdomen: Right lower quadrant with guarding and rebound. Psoas sign is positive. Pelvic: Deferred. Rectal: Deferred. Breasts: Deferred. Extremities: Good capillary refill. Neuro: Cranial nerves 2 through 12 grossly within normal limits. Laboratory Data: WBC count of 18.9 with hemoglobin of 11.6. Potassium 3.3. Lipase 96. CAT scan of abdomen and pelvis with findings consistent with acute appendicitis. Assessment: This is a female with acute appendicitis. Benefits, alternatives, and risks of emergent laparoscopic, possible open appendectomy fully explained, which include, but not limited to infectio n, bleeding, damage to adjacent structures, anesthesia complication, abscess, myocardial infarction, even . She also understands this may not relieve the symptoms. She might need more than one vanessa rgical intervention. The operating room was immediately called. AMIRAH Voice ID: [id number]
[2021-05-17] MEDS ORDERED: dexAMETHasone 10 MG/ML VIAL ONE ×2 (12:45→12:47)
[2021-05-17] MEDS ORDERED: KETOROLAC 30 MG/ML INJ ONE (12:46)
[2021-05-17] MEDS ORDERED: NEOSTIGMINE 1 MG/ML -5 ML ONE (12:54)
[2021-05-17] MEDS ORDERED: GLYCOPYRROLATE 0.2 MG/ML SYR ONE (12:54)
[2021-05-17] MEDS ORDERED: HYDROCODONE/APAP 5/325 MG TAB PO PRN (13:11)
--- NOTE | 2021-05-17 13:12 | P.BOP ---
Preoperative diagnosis: acute appendicitis, nausea, vomit Postoperative diagnosis: same Primary procedure: Laparoscopic appendectomy Estimated blood loss: <10cc Specimen: claudia Findings: inflammed appendix Anesthesia: General Complications: None Transferred to: Recovery Room Condition: Good
--- NOTE | 2021-05-17 13:56 | RAD REPORT ---
EXAM DESCRIPTION: CT - Abdomen Pelvis W Contrast - 05/17/2021 6:40 am CLINICAL HISTORY: ABD PAIN COMPARISON: None Available. TECHNIQUE: CT of the abdomen and pelvis performed following IV administration of iodinated contras t. This exam was performed according to our departmental dose-optimization program, which includes au tomated exposure control, adjustment of the mA and/or kV according to patient size and/or use of iter ative reconstruction technique. FINDINGS: Lung Bases: The visualized lung bases are clear. Bones: No destructive bone lesions identified. Abdomen: Liver: The liver has normal size and density. No intrahepatic biliary dilatation. Lateral left hepati c lobe hypodensity with peripheral globular enhancement likely representing a hemangioma measuring 2. 8 cm in greatest dimension. Hypodensity in the right hepatic lobe measuring 1.6 cm also likely repres ents a hemangioma. Gallbladder: No calcified gallstones. Spleen, Pancreas, and Adrenal Glands: The spleen, pancreas, and adrenal glands are unremarkable. Kidneys: No hydronephrosis or obstructing calculus. Vasculature: The aorta and IVC have normal caliber and position. The portal vein is patent. The pro ximal visceral and renal arteries are patent. Stomach: The stomach and duodenum have normal course. Other: No free intraperitoneal air. No free fluid or lymphadenopathy. Pelvis: Bladder: Wall thickening of the urinary bladder. Bowel: Dilated loops of distal small bowel without distal decompression. Mild wall thickening. Appendix: Appendicolith and dilation of the appendix measuring 1.1 cm. No well-circumscribed periap pendiceal fluid collection. Pelvis: Uterus is not enlarged. IMPRESSION: 1. Findings compatible with acute uncomplicated appendicitis. 2. Dilated loops of distal small bowel without distal decompression. Findings most compatible with ileus/enteritis of the ileum. 3. Wall thickening of the urinary bladder. This could be seen with cystitis. Electronically signed by: Camilo Street 05/17/2021 3:10 AM CDT Due to temporary technical issues with the PACS/Fluency reporting system, reports are being signed by the in house radiologists without review as a courtesy to insure prompt reporting. The interpreting radiologist is fully responsible for the content of the report.
--- NOTE | 2021-05-17 15:42 | OP ---
Date of Procedure: 05/17/2021 Surgeon: Nathen Harvey MD Preoperative Diagnoses: Acute appendicitis, nausea, vomiting, right lower quadrant abdominal pain, p eritonitis. Postoperative Diagnoses: Acute appendicitis, nausea, vomiting, right lower quadrant abdominal pain, peritonitis. Procedure: Laparoscopic appendectomy. Findings: Inflamed appendix. Anesthesia: General plus local. Estimated Blood Loss: Less than 10 cc. Indications: This is the case of a female, who comes to us with acute abdominal pain, diagnosed with acute appendicitis. The benefits, alternatives, and risks of laparoscopic, possible open appendecto my fully explained, which include, but not limited to infection, bleeding, damage to adjacent structu res, anesthesia complication, choledocholithiasis, bile leak, pancreatitis, OK, and . She also understands this may not relieve her symptoms. She might need more than one surgical intervention. She understood, signed a consent. Procedure In Detail: The patient was brought to the operating room, placed in supine position. Anes thesia was done without complication. Abdominal area was prepped and draped in a sterile fashion. M arcaine 0.5% was injected for local anesthetic followed by sharp incision in the skin in the infraumb ilical region. Incision was carried down to fascia, which was opened under direct vision. Peritoneu m was encountered, opened under direct vision. Vicryl #1 placed inside the fascia. Josie trocar wa s carefully introduced. No bleeding was obtained. I placed 2 more trocars, 5 mm each one of them in the suprapubic and left lower quadrant under direct visualization. This helped me to visualize the very inflamed appendix. So, we created a window in the base of the appendix, transected that with th e Endo-BERNICE 45 mm 3.5 and the mesoappendix with an Endo-BERNICE 45 mm 2.5. Further hemostasis was obtaine d with the help of hemoclips. The appendix removed from abdominal cavity using an EndoCatch through the umbilical incision. The area was inspected once again. No bile leak. No bleeding. At that mom ent, I proceeded to remove the trocars under direct vision. Deflated the pneumoperitoneum. Closed t he fascia with #1 Vicryl, irrigated subcutaneous tissue, closed that with 3-0 chromic and skin with s taples. Sponge count and instrument counts correct. The patient tolerated the procedure well. The patient was sent to recovery room in stable condition. This patient came with nausea, vomiting, stil l intractable abdominal pain, most likely she is going to stay in observation with IV hydration. Adv ance diet slowly and also switched from IV medication to p.o. medication. Whenever she is tolerating diet, then she will be discharged home. ESTEPHANIA/IDALIA Voice ID: [id number] Report ID: [id number]
[2021-05-18] MEDS: METRONIDAZOLE 500mg IVPB 500 MG/100 ML BAG IV SCH ×2 (05:16→11:44)
[2021-05-18] MEDS: D5 0.45 NS 1,000 ML IV SCH (10:02)
[2021-05-18] MEDS: Levofloxacin500mg IV 500 MG/100 ML BAG IV SCH (10:02)
[2021-05-18 12:17] VITALS: BP 96/52; TEMP 99.2
--- NOTE | 2021-05-18 12:43 | P.DS ---
Admission Date: 05/17/21 Discharge Date: 05/18/21 Discharge Condition: GOOD Hospital Course: unremarkable Vital Signs/Physical Exam: Temp Pulse Resp BP Pulse Ox 99.2 F 67 16 96/52 L 99 05/18/21 12:00 05/18/21 12:00 05/18/21 12:00 05/18/21 12:00 05/18/21 12:00 General: Alert, Oriented x3, Cooperative HEENT: PERRLA Neck: Supple Respiratory: Normal air movement Cardiovascular: No edema, Normal pulses Gastrointestinal: Soft and benign Musculoskeletal: No erythema, No tenderness, No warmth Neurological: Normal gait, Normal speech Lymphatics: No axilla or inguinal lymphadenopathy External genitalia: Deferred Rectal: Deferred Laboratory Data at Discharge: WBC 18.90 K/uL (4.3-10.9) H 05/16/21 22:48 Hgb 11.6 g/dL (12.0-15.0) L 05/16/21 22:48 Hct 34.5 % (36.0-45.0) L 05/16/21 22:48 Plt Count 264 K/uL (152-406) 05/16/21 22:48 Sodium 138 mmol/L (136-145) 05/16/21 22:48 Potassium 3.3 mmol/L (3.5-5.1) L 05/16/21 22:48 BUN 9 mg/dL (7-18) 05/16/21 22:48 Creatinine 0.59 mg/dL (0.55-1.3) 05/16/21 22:48 Glucose 117 mg/dL (74-106) H 05/16/21 22:48 Total Bilirubin 1.0 mg/dL (0.2-1.0) 05/16/21 22:48 AST 10 U/L (15-37) L 05/16/21 22:48 ALT 19 U/L (12-78) 05/16/21 22:48 Alkaline Phosphatase 46 U/L (45-117) 05/16/21 22:48 Lipase 96 U/L (73-393) 05/16/21 22:48 Home Medications: Ciprofloxacin HCl [Cipro 500 MG Tablet] 500 mg PO BID #12 tab 05/18/21 Codeine/APAP [Tylenol W/Codeine #3 tab] 1 tab PO Q4HP PRN #20 tab 05/18/21 New Medications: Ciprofloxacin HCl [Cipro 500 MG Tablet] 500 mg PO BID #12 tab Codeine/APAP [Tylenol W/Codeine #3 tab] 1 tab PO Q4HP PRN #20 tab PRN Reason: Pain Diet: Regular Activity: No lifting more than 10 lbs Followup: Nathen Harvey MD [ACTIVE - CAN ADMIT] - 1 Week NONE,NONE [Primary Care Provider] -
[2021-05-18 13:09] VITALS: O2SAT 97
[2021-05-18 13:21] LABS: Absolute Lymphocytes (CBC) 1.6 K/uL (0.7-4.9); Basophils % 0.2 % (0-1.3); Hematocrit 29.4 % (36.0-45.0); Lymphocytes % 11.8 % (15.3-44.8); MPV 8.1 fL (7.6-11.3); RBC Red Blood Cell Count 3.56 M/uL (3.86-4.86)
== END 2021-05-18 14:17 | disposition home or self-care (01) | DRG 343 ==
LOC: ER 21:36 → ERHOLD 05-17 03:53 → 2ND 05-17 13:52
PROVIDERS: ADMIT Surgery; ATTEND Surgery
PROC: 0DTJ4ZZ Resection of Appendix, Percutaneous Endoscopic Approach (ICD-10-PCS; principal; 2021-05-17 12:00)
DX: K35.80 Unspecified acute appendicitis (principal); Z88.0 Allergy status to penicillin; Z87.891 Personal history of nicotine dependence; Z79.899 Other long term (current) drug therapy; Z20.822 Contact with and (suspected) exposure to COVID-19
CPT/HCPCS: 36415; 74177; 80048; 80076; 81003; 81025; 83690; 85025; 88304; 94010; 96361; 96365; 96368; 99285; J0696; J1100; J2405; J2704; J2710; J3010; J7030; J7120; J7799; Q9967; U0003